=== PATIENT | female | born 1940 ===

== ENCOUNTER 2024-10-18 13:37 | Emergency (ER) | payer OTHER ==
[~2024-10-18] VITALS: Ht 177.8 cm; Wt 63.5 kg
[2024-10-18 13:47] VITALS: BP 156/82; O2SAT 95
[2024-10-18] MEDS ORDERED: TETANUS & DIPHTHERIA TOX,ADULT 0.5 ML VIAL IM ONE (14:00)
[2024-10-18] MEDS ORDERED: CEFTRIAXONE SODIUM 1,000 MG VIAL IM ONE (14:45)
[2024-10-18] MEDS ORDERED: CEFUROXIME500 MG PO (17:07)
[2024-10-18] MEDS ORDERED: PEPCID AC20 MG PO (17:07)
== END 2024-10-18 17:14 | disposition home or self-care (01) ==
LOC: ER 13:37
DX: S01.81XA Laceration without foreign body of other part of head, initial encounter (principal); W19.XXXA Unspecified fall, initial encounter; Y93.89 Activity, other specified; Y92.89 Other specified places as the place of occurrence of the external cause; Y99.8 Other external cause status; S01.511A Laceration without foreign body of lip, initial encounter
CPT/HCPCS: 13132; 13133; 13152; 13153; 70110; 70450; 72125; 73070; 90471; 90714; 96372; 99284; J0696; J1670

== ENCOUNTER 2024-11-18 11:49 | Emergency (ER) | payer OTHER ==
[~2024-11-18] VITALS: Ht 154.9 cm; Wt 64.4 kg
[~2024-11-18 11:49] MED LIST: CEFUROXIME500 MG PO; PEPCID AC20 MG PO
[2024-11-18 13:42] LABS: BASO % 0.4 % (0.1-1.2); EOS # 0.13 (0.04-0.54); EOS % 1.2 % (0.7-7.0); LYMPH # 1.33 (1.18-3.74); LYMPH % 12.6 % (19.3-53.1); MEAN PLATELET VOLUME 10.80 fl (9.4-12.4); MONO # 0.47 (0.24-0.82); MONO % 4.5 % (4.7-12.5); NEUT # 8.56 (1.56-6.13); NEUT % 81.0 % (34.0-71.1); RED CELL DISTRIBUTION WIDTH 12.8 % (11.6-14.4)
[2024-11-18 14:18] LABS: BUN CREA RATIO 28.0 (7.0-25.0); CREATININE SERUM 0.88 mg/dL (0.55-1.02); GFR 61.07; GLUCOSE FASTING 110.0 mg/dL (65-100); OSMOLALITY SERUM 288.0 MOSM/KG (275-295)
== END 2024-11-18 20:47 | disposition home or self-care (01) ==
LOC: ER 11:49
PROVIDERS: General Practice
DX: S09.8XXA Other specified injuries of head, initial encounter (principal); W19.XXXA Unspecified fall, initial encounter; Y93.89 Activity, other specified; Y92.098 Other place in other non-institutional residence as the place of occurrence of the external cause; Y99.8 Other external cause status